=== PATIENT | female | born 2000 | race Caucasian/White ===

== ENCOUNTER 2022-03-20 05:34 | Outpatient (CLI) | payer OTHER ==
[~2022-03-20] VITALS: Ht 157.4 cm; Wt 60.9 kg
[2022-03-20] MEDS ORDERED: AMPH20TA2 PO (11:00)
== END 2022-03-20 11:13 ==
LOC: PREOP 05:34
PROVIDERS: ATTEND Obstetrics & Gynecology
DX: Z01.818 Encounter for other preprocedural examination (principal); N87.1 Moderate cervical dysplasia

== ENCOUNTER 2022-03-27 11:26 | Day surgery (SDC) | payer OTHER ==
[2022-03-27] VITALS (10 sets, daily range): BP systolic 85–119; BP diastolic 54–89
[~2022-03-27] VITALS: Ht 157.4 cm; Wt 60.9 kg
[~2022-03-27 11:26] MED LIST: AMPH20TA2 PO
[2022-03-27] MEDS ORDERED: ceFAZolin INJECTION 1,000 MG in NS (IVPB) 50 ML IV ONE (11:45)
[2022-03-27] MEDS ORDERED: LACTATED RINGERS 1,000 ML IV PRN (11:45)
[2022-03-27] MEDS ORDERED: fentaNYL INJ 100 MCG/2 ML AMP ONE (12:32)
[2022-03-27] MEDS ORDERED: LIDOCAINE PF 2% 5 ML (XYLOCAINE) VIAL ONE (12:32)
[2022-03-27] MEDS ORDERED: MIDAZOLAM 2 MG/2 ML (VERSED) VIAL ONE (12:32)
[2022-03-27] MEDS ORDERED: proPOfol 200 MG/20 ML (DIPRIVAN) VIAL IV ONE (12:32)
[2022-03-27] MEDS ORDERED: ONDANSETRON 4 MG/2 ML (SDV) Z0FRAN ONE (12:32)
[2022-03-27 12:46] LABS: BASOPHILS % (AUTO) 1 % (0-10); EOSINOPHILS # (AUTO) 0.3 10^3/uL (0.0-0.3); EOSINOPHILS % (AUTO) 7 % (0-10); HEMATOCRIT 44 % (35-52); HEMOGLOBIN 14.9 g/dL (11.5-16.0); LYMPHOCYTES # (AUTO) 2.1 10^3/uL (1.0-4.0); LYMPHOCYTES % (AUTO) 44 % (12-44); MEAN CORPUSCULAR HEMOGLOBIN 30 pg (25-34); MEAN CORPUSCULAR HGB CONC 34 g/dL (32-36); MEAN CORPUSCULAR VOLUME 87 fL (80-99); MEAN PLATELET VOLUME 9.7 fL (9.0-12.2); MONOCYTES # (AUTO) 0.4 10^3/uL (0.0-1.0); MONOCYTES % (AUTO) 9 % (0-12); NEUTROPHILS # (AUTO) 1.9 10^3/uL (1.8-7.8); NEUTROPHILS % (AUTO) 40 % (42-75); PLATELET COUNT 262 10^3/uL (130-400); WHITE BLOOD COUNT 4.7 10^3/uL (4.3-11.0)
--- NOTE | 2022-03-27 13:13 | Progress Note-Pre Operative ---
Pre-Operative Progress Note Date of Available H&P: Mar 27, 2022 Date H&P Reviewed: Mar 27, 2022 Time H&P Reviewed: 13:13 History & Physical: H&P Reviewed, No changes noted Pre-Operative Diagnosis: KRYS-2 SÁNCHEZ RIVERA MD Mar 27, 2022 13:13
--- NOTE | 2022-03-27 13:14 | Progress Note-Post Operative ---
Post-Operative Progess Note Surgeon (s)/Sap Senior Developer (s) Surgeon SÁNCHEZ RIVERA MD Sap Senior Developer: None Pre-Operative Diagnosis KRYS-2 Post-Operative Diagnosis Same with pathology pending Procedure & Operative Findings Date of Procedure 03/27/22 Procedure Performed/Findings LEEP procedure Anesthesia Type General Estimated Blood Loss Estimated blood loss (mL): Minimal Specimens/Packing Specimens Removed Ectocervix LEEP specimen tagged at 12:00 SÁNCHEZ RIVERA MD Mar 27, 2022 13:14
[2022-03-27] MEDS ORDERED: MEPERIDINE (DEMEROL) INJ 100 MG/ML IM ONE (13:15)
[2022-03-27] MEDS ORDERED: ONDANSETRON 4 MG/2 ML (SDV) Z0FRAN IVP PRN ×2 (13:15→14:00)
[2022-03-27] MEDS ORDERED: KETOROLAC 30 MG/ML VIAL IVP ONE (13:15)
[2022-03-27] MEDS ORDERED: D5 LR IV SOLUTION 1,000 ML IV SCH (13:15)
--- NOTE | 2022-03-27 13:16 | Discharge Inst-Surgical ---
Discharge Inst-Surgical Depart Medication/Instructions New, Converted or Re-Newed RX: Other Consults/Follow Up Patient Instructions: As directed Orders & Referrals Follow Up Appt: Call to make follow up appt. for patient in 2 weeks. Activity: Rest for 24 hours, than as tolerated. May take Tylenol or ibuprofen as needed cramps or pain Diet: As tolerated shower or tub bathe as desired. Nothing per vagina (no tampons, douching, or intercoarse) for 2 weeks. Patient to return to the clinic as soon as possible for: Temperature greater than 101F, Severe Pain, Foul discharge from incision or vagina, Excessive Bleeding (more than a period). Activity Activity as Tolerated: No Diet Discharge Diet: No Restrictions SÁNCHEZ RIVERA MD Mar 27, 2022 13:16
[2022-03-27] MEDS ORDERED: SEVOFLURANE (ULTANE) 15 ML INHAL SOLN ONE (13:52)
[2022-03-27] MEDS ORDERED: morphine INJ 10 MG/ML 1ML (SYR OR VIAL) IVP ONE (14:00)
--- NOTE | 2022-03-28 01:00 | OPERATIVE REPORT ---
DATE OF SERVICE: 03/27/2022 PREOPERATIVE DIAGNOSIS: Moderate cervical dysplasia. POSTOPERATIVE DIAGNOSIS: Moderate cervical dysplasia. PROCEDURE: LEEP procedure. DESCRIPTION OF PROCEDURE: With the patient in the supine position, under satisfactory general anesthesia, she was repositioned in the dorsal lithotomy position in the Mingo stirrups and prepped and draped in the usual fashion for vaginal surgery. Speculum was placed in the vagina. The cervix was saturated with 5% acetic acid. After several minutes, that was evacuated from the vagina. Weighted speculum was placed in the posterior fornix of vagina, cervix exposed and grasped anteriorly with single tooth tenaculum to stabilize and elevate the cervix. The patient had an acetowhite lesion encompassing most of the transformation zone and the opening of the cervical os. Using a 20 mm LEEP electrode with a power set at 50 pascual, a LEEP specimen was removed, removing the entire transformation zone and all acetowhite epithelium. That specimen was tagged at the 12 o'clock position and sent to pathology for permanent section as the ectocervix LEEP specimen. The cervical defect was now treated with ball electrocautery with a power setting of 45 pascual to effect hemostasis. With hemostasis complete, the tenaculum was removed. There was no bleeding from the puncture sites. At this point, the procedure was complete and terminated. Sponge and needle counts were correct. Blood loss was minimal. The patient tolerated the procedure well and was uneventfully awakened from her general anesthesia and transferred to recovery room in stable condition with plans for discharge home. Job ID: [id number] DocumentID: [id number] Dictated Date: 03/27/2022 14:01:51 Montessori Teacher Date: 03/28/2022 00:58:00 Dictated By: SÁNCHEZ RIVERA MD
== END 2022-03-27 15:25 | disposition home or self-care (01) ==
LOC: SDC 11:26
PROVIDERS: ATTEND Obstetrics & Gynecology
DX: N87.1 Moderate cervical dysplasia (principal)
CPT/HCPCS: 36415; 84703; 85025; 87081; 88307